=== PATIENT | female | born 1945 | race Caucasian/White ===

== ENCOUNTER 2019-04-14 10:56 | Emergency (ER) | payer MEDICARE ==
[~2019-04-14] VITALS: Ht 160 cm; Wt 64.9 kg
[2019-04-14] MEDS ORDERED: HYDROcodone/acetaminophen 10/325mg tab PO ONE (11:20)
[2019-04-14] MEDS ORDERED: HYDR-4383 PO (11:24)
--- NOTE | 2019-04-14 11:24 | NUR ---
Pt to xray.
[2019-04-14 11:55] VITALS: BP 119/59
[2019-04-14] MEDS ORDERED: normal saline 1000ml 1,000 ML IVB ONE (11:56)
== END 2019-04-14 13:00 | disposition home or self-care (01) ==
LOC: ER 10:57
DX: S30.0XXA Contusion of lower back and pelvis, initial encounter (principal); S20.229A Contusion of unspecified back wall of thorax, initial encounter; Z88.8 Allergy status to other drugs, medicaments and biological substances; Z79.899 Other long term (current) drug therapy; W01.0XXA Fall on same level from slipping, tripping and stumbling without subsequent striking against object, initial encounter; Y93.01 Activity, walking, marching and hiking; Y92.89 Other specified places as the place of occurrence of the external cause; Y99.8 Other external cause status
CPT/HCPCS: 72070; 72100; 99284; J7030

== ENCOUNTER 2019-06-04 21:03 | Inpatient (IN) | payer MEDICARE ==
[~2019-06-04] VITALS: Ht 160 cm; Wt 59.1 kg
[~2019-06-04 21:03] MED LIST: HYDR-4383 PO
[2019-06-04 22:13] LABS: BASOPHILS # (AUTO) 0.1 X10'3 (0-0.2); BASOPHILS % (AUTO) 1.5 % (0-1); EOSINOPHILS # (AUTO) 0.3 X10'3 (0-0.9); HEMATOCRIT 42.2 % (35.0-45.0); LYMPHOCYTES # (AUTO) 2.5 X10'3 (1.1-4.8); LYMPHOCYTES % (AUTO) 29.4 % (21-51); MEAN CORPUSCULAR HEMOGLOBIN 30.3 PG (27.0-31.0); MEAN CORPUSCULAR HGB CONC 33.1 g/dL (33.0-36.5); MEAN CORPUSCULAR VOLUME 91.6 FL (78-98); MONOCYTES # (AUTO) 0.5 X10'3 (0-0.9); MONOCYTES % (AUTO) 6.2 % (2-12); NEUTROPHILS # (AUTO) 5.1 X10'3 (1.8-7.7); NEUTROPHILS % (AUTO) 59.9 % (42-75); PLATELET COUNT 230 X10'3 (140-440); RED CELL DISTRIBUTION WIDTH 14.9 % (11.5-14.5); WHITE BLOOD COUNT 8.5 X10'3 (4.5-11.0)
[2019-06-04 22:25] LABS: ALANINE AMINOTRANSFERASE 11 U/L (12-78); ALBUMIN 3.7 G/DL (3.4-5.0); ALBUMIN/GLOBULIN RATIO 1.1 (1.1-1.5); ALKALINE PHOSPHATASE 82 IU/L (46-116); ANION GAP 8 (8-16); ASPARTATE AMINO TRANSFERASE 12 U/L (10-37); BILIRUBIN,TOTAL 0.3 MG/DL (0.1-1.0); BLOOD UREA NITROGEN 12 MG/DL (7-18); BUN/CREATININE RATIO 16.2 (6.6-38.0); CALCIUM 9.1 MG/DL (8.5-10.1); CHLORIDE 103 MMOL/L (99-107); CREATININE 0.74 MG/DL (0.40-0.90); GLUCOSE 112 MG/DL (70-104); POTASSIUM 4.6 MMOL/L (3.5-5.1); SODIUM 140 MMOL/L (135-145); TOTAL CARBON DIOXIDE 29.3 MMOL/L (24-32); TOTAL PROTEIN 7.2 G/DL (6.4-8.2); eGFR 77 ML/MIN
[2019-06-05] VITALS (16 sets, daily range): BP systolic 111–168; BP diastolic 37–75
[2019-06-05] MEDS ORDERED: meclizine 12.5mg tablet PO ONE (00:20)
[2019-06-05] MEDS ORDERED: ondansetron 4mg rapidly disintigrating tab PO ONE (00:20)
[2019-06-05] MEDS ORDERED: aspirin 81mg tab.chew PO ONE (00:20)
[2019-06-05] MEDS ORDERED: nitroGLYCERIN 0.4mg SUBLingual tab SL PRN ×2 (00:20→08:00)
[2019-06-05 00:46] LABS: LIPASE 104 U/L (73-393)
[2019-06-05] MEDS ORDERED: ASPI81TA52 PO (01:26)
[2019-06-05] MEDS ORDERED: CARV-49 PO (01:26)
[2019-06-05] MEDS ORDERED: CALC600T12 PO (01:26)
[2019-06-05] MEDS ORDERED: EFF25T PO (01:26)
[2019-06-05] MEDS ORDERED: BENA10TA74 PO (01:26)
[2019-06-05] MEDS ORDERED: CLOP75TA15 PO (01:26)
[2019-06-05] MEDS ORDERED: OMEP20TA5 PO (01:26)
[2019-06-05] MEDS ORDERED: FLUT1BLS4 INH (01:29)
--- NOTE | 2019-06-05 01:29 | NUR ---
ANAI, SON, AND MELI DUNHAM, LEAVING NOW HOME PHONE WITH ANY UPDATED [phone]. PLEASE CALL WHEN PT GETS A ROOM AND GOES UPSTAIRS.
--- NOTE | 2019-06-05 01:41 | NUR ---
MED REC COMPLETED, PT AWAITING HOSPITALIST
[2019-06-05] MEDS ORDERED: mag hydrox/Alum hydrox/simeth 30ml oral suspension PO PRN (02:10)
[2019-06-05] MEDS ORDERED: ondansetron/PF 4mg/2ml inj IV PRN (02:10)
[2019-06-05] MEDS ORDERED: acetaminophen 325mg tablet PO PRN (02:10)
[2019-06-05] MEDS ORDERED: magnesium hydroxide 30ml (MOM) UD suspension PO PRN (02:10)
[2019-06-05 02:32] LABS: HEMOGLOBIN A1C 5.6 % (4.5-6.2)
--- NOTE | 2019-06-05 02:47 | NUR ---
DR. KHAN ORDERS IN FOR ADMISSION. AWAITING IPA
--- NOTE | 2019-06-05 03:55 | NUR ---
Patient in room PCU 3023. I have received report from Barbara MULLER and had the opportunity to ask questions and assume patient care. Patient arrived to telemetry by too and was able to ambulate into her bed. VS taken, telemetry monitoring started. Patient was oriented to her room and the call light. All belongings are in a patient bag at her bedside. Will continue to monitor.
--- NOTE | 2019-06-05 06:15 | NUR ---
Patient in room PCU 3023. I have received report from Cathryn MULLER and had the opportunity to ask questions and assume patient care.
--- NOTE | 2019-06-05 06:29 | NUR ---
Problems reprioritized. Patient report given, questions answered & plan of care reviewed with Papito MULLER.
[2019-06-05] MEDS ORDERED: pantoprazole 40mg Tablet.DR PO SCH (07:30)
--- NOTE | 2019-06-05 07:34 | NUR ---
promotional table spacer PAGER ID: [phone] MESSAGE: Re: Bailee Galvez, Room: 3023C. Pt admitted for chest pain, Trops neg x3. Leydi scan not ordered, do you want Pt NPO just in case? -[facility] #[id number]
[2019-06-05] MEDS ORDERED: non-formulary drug (Omeprazole 1 TAB) PO SCH (08:00)
[2019-06-05] MEDS ORDERED: regadenoson 0.4mg/5ml syringe IV ONE (08:00)
[2019-06-05] MEDS ORDERED: heparin, porcine 5000 units/ml vial SQ SCH (08:00)
[2019-06-05] MEDS ORDERED: clopidogrel 75mg tablet PO SCH ×2 (08:00)
[2019-06-05] MEDS ORDERED: carvedilol 6.25mg tablet PO SCH ×2 (08:00)
[2019-06-05] MEDS ORDERED: aspirin 325mg tablet PO SCH (08:00)
[2019-06-05] MEDS ORDERED: budesonide 0.5mg/2ml UD nebule IH SCH (08:00)
[2019-06-05] MEDS ORDERED: aminophylline 250mg/10ml inj. IV PRN (08:00)
[2019-06-05] MEDS ORDERED: aspirin 81mg tablet.DR PO SCH (08:00)
[2019-06-05] MEDS ORDERED: metoprolol tartrate 1mg/ml inj IV PRN (08:00)
[2019-06-05] MEDS ORDERED: lisinopril 10 MG tablet PO SCH ×2 (08:00)
--- NOTE | 2019-06-05 13:24 | NUR ---
PAGER ID: [phone] MESSAGE: Re: Bailee Galvez, Room 3023C. Leydi scan results have been posted. -[facility] #[id number]
[2019-06-05] MEDS ORDERED: VENL75TA90 PO (13:49)
[2019-06-05] MEDS ORDERED: POTA10TA36 PO (13:49)
[2019-06-05] MEDS ORDERED: PRAV40TA3 PO (13:49)
--- NOTE | 2019-06-05 15:30 | NUR ---
Pt DC'd home with Osmani in law. IV removed, canula intact. Tele-box removed and returned to tele-tech. Pt stable at DC and vitals WNL. DC paperwork and instructions gone over with Pt and daughter in law. Allowed both Pt and daughter in law to ask questions and then answer them. Prescriptions called into [facility] in [facility]. Pt does not have a PCP and states she will get one PATRIC. Pt's belongings gathered and sent with Pt. Pt wheeled down to lobby in wheelchair by aid and left in private vehicle with daughter in law.
--- NOTE | 2019-06-09 11:11 | NUR ---
Case Management DC follow up: spoke to pt & pt DnL, pt reports "doing good, real good". Denies cp, emergent/acute general pain, SCHNEIDER, SOB, resp distress, NV, dizziness. pt states she does get a little light headed when stands up too fast. Sleeps w/elevation. Agrees to have something to steady herself when changing positions ( educated orthostatic protocol). verbalizes understanding of meds, why prescribed, taking as ordered, no ase noted. Lives w/daughter, who is an RN. PCP has been set up w/ROGER Bynum. Also seeking necessary referrals to sanitation inspector/[facility]. Verbalizes understanding of s/s that would warrant -/ER visit for evaluation. needs met, quesions answered at DC, no further questions at this time r/t aftercare, hospital stay.
== END 2019-06-05 15:30 | disposition home or self-care (01) | DRG 313 ==
LOC: ER 21:03 → ED HOLD 06-05 02:24 → PCU 3S 06-05 04:34
PROVIDERS: ADMIT Internal Medicine; ATTEND Internal Medicine
PROC: 4A02XM4 Measurement of Cardiac Total Activity, External Approach (ICD-10-PCS; principal; 2019-06-05)
PROC: 3E033HZ Introduction of Radioactive Substance into Peripheral Vein, Percutaneous Approach (ICD-10-PCS; 2019-06-05)
DX: R07.9 Chest pain, unspecified (principal); E78.00 Pure hypercholesterolemia, unspecified; I10 Essential (primary) hypertension; F17.210 Nicotine dependence, cigarettes, uncomplicated; J44.9 Chronic obstructive pulmonary disease, unspecified; I25.2 Old myocardial infarction; Z79.02 Long term (current) use of antithrombotics/antiplatelets; Z88.8 Allergy status to other drugs, medicaments and biological substances; Z98.61 Coronary angioplasty status
CPT/HCPCS: 36415; 71045; 78452; 80053; 83036; 83690; 83880; 84484; 85025; 87081; 93005; 93017; 94640; 94760; 99285; A9500; G0378; J0280; J1644; J2785; J7626; J8597

== ENCOUNTER 2019-10-01 06:13 | Day surgery (SDC) | payer OTHER ==
[2019-09-30 14:24] LABS: BASOPHILS # (AUTO) 0.1 X10'3 (0-0.2); BASOPHILS % (AUTO) 1.3 % (0-1); EOSINOPHILS # (AUTO) 0.2 X10'3 (0-0.9); EOSINOPHILS % (AUTO) 2.6 % (0-6); HEMATOCRIT 39.8 % (35.0-45.0); HEMOGLOBIN 12.9 g/dl (12.0-16.0); LYMPHOCYTES # (AUTO) 2.5 X10'3 (1.1-4.8); MEAN CORPUSCULAR HEMOGLOBIN 29.3 PG (27.0-31.0); MEAN CORPUSCULAR HGB CONC 32.4 g/dL (33.0-36.5); MEAN CORPUSCULAR VOLUME 90.6 FL (78-98); MEAN PLATELET VOLUME 9.4 FL (7.4-10.4); MONOCYTES # (AUTO) 0.8 X10'3 (0-0.9); MONOCYTES % (AUTO) 8.7 % (2-12); NEUTROPHILS # (AUTO) 5.9 X10'3 (1.8-7.7); NEUTROPHILS % (AUTO) 61.4 % (42-75); PLATELET COUNT 242 X10'3 (140-440); RED BLOOD COUNT 4.39 X10'6 (4.20-5.60); RED CELL DISTRIBUTION WIDTH 16.8 % (11.5-14.5); WHITE BLOOD COUNT 9.5 X10'3 (4.5-11.0)
[2019-09-30 14:36] LABS: PARTIAL THROMBOPLASTIN TIME 26 SECONDS (22-32)
[2019-09-30 14:37] LABS: ALBUMIN 3.5 G/DL (3.4-5.0); ANION GAP 3 (8-16); BLOOD UREA NITROGEN 11 MG/DL (7-18); BUN/CREATININE RATIO 12.9 (6.6-38.0); CALCIUM 9.2 MG/DL (8.5-10.1); CHLORIDE 104 MMOL/L (99-107); CREATININE 0.85 MG/DL (0.40-0.90); GLUCOSE 95 MG/DL (70-104); POTASSIUM 4.4 MMOL/L (3.5-5.1); SODIUM 140 MMOL/L (135-145); TOTAL CARBON DIOXIDE 32.6 MMOL/L (24-32); eGFR 66 ML/MIN
[2019-10-01] VITALS (11 sets, daily range): BP systolic 113–141; BP diastolic 46–89
[~2019-10-01] VITALS: Ht 160 cm; Wt 59.2 kg
[~2019-10-01 06:13] MED LIST changes: +ASPI81TA52 PO; +BENA10TA74 PO; +CALC600T12 PO; +CARV-49 PO; +CLOP75TA15 PO; +FLUT1BLS4 INH; -HYDR-4383 PO; +OMEP20TA5 PO; +POTA10TA36 PO; +PRAV40TA3 PO; +VENL75TA90 PO
[2019-10-01] MEDS ORDERED: normal saline 1,000 ML IV SCH (06:35)
[2019-10-01] MEDS ORDERED: diphenhydrAMINE 25mg capsule PO PRN (06:35)
[2019-10-01] MEDS ORDERED: LORazepam 0.5 MG tablet PO PRN (06:35)
[2019-10-01] MEDS ORDERED: LIDOcaine/PRILOcaine 5gm cream TP ONE (06:40)
[2019-10-01] MEDS ORDERED: ATOR80TA13 PO (06:50)
[2019-10-01] MEDS ORDERED: fentaNYL/PF 50MCG/1 ML 2ML syringe ONE (06:51)
[2019-10-01] MEDS ORDERED: LIDOcaine 1% (10mg/ml)w/preservative injection 20ml MDV ONE ×2 (06:51→06:52)
[2019-10-01] MEDS ORDERED: midazolam 2 mg/2 ml injection ONE (06:51)
[2019-10-01] MEDS ORDERED: nitroGLYCERIN-Tridil 50MG/D5W 250 ML IV ONE (06:51)
[2019-10-01] MEDS ORDERED: verapamil 2.5 mg/ml inj IV ONE (06:51)
[2019-10-01] MEDS ORDERED: iohexol 350 MG/ML 50ML vial IV ONE (06:52)
[2019-10-01] MEDS ORDERED: iohexol 350MG/ML 100ml bottle IV ONE ×2 (06:52→08:09)
[2019-10-01] MEDS ORDERED: heparin 1,000unit/ml 10ml vial 10 ML ONE (06:52)
[2019-10-01] MEDS ORDERED: CHOL50004 PO (06:56)
[2019-10-01] MEDS ORDERED: LYR75C PO (06:56)
[2019-10-01] MEDS ORDERED: LEVO25TA2 PO (06:56)
[2019-10-01] MEDS ORDERED: vitamin b12 PO (06:56)
[2019-10-01] MEDS ORDERED: OMEG-79 PO (06:56)
[2019-10-01] MEDS ORDERED: FLUT16SP2 BOTHNARES (06:56)
[2019-10-01 08:51] LABS: ISTAT HGB ART 10.5 g/dl (12.0-16.0); ISTAT Hct ART 31 %PCV (35-48); ISTAT O2 SATURATION ARTERIAL 96 % (95-98); ISTAT SOURCE ART
[2019-10-01] MEDS ORDERED: HYDROcodone/acetaminophen 5mg/325mg tablet PO PRN (09:00)
[2019-10-01] MEDS ORDERED: HYDROcodone/acetaminophen 10/325mg tab PO PRN (09:00)
[2019-10-01] MEDS ORDERED: acetaminophen 325mg tablet PO PRN (09:00)
== END 2019-10-01 15:00 | disposition home or self-care (01) ==
LOC: SSTAY O 06:13
PROVIDERS: ATTEND Internal Medicine Cardiovascular Disease
DX: R94.39 Abnormal result of other cardiovascular function study (principal); I25.10 Atherosclerotic heart disease of native coronary artery without angina pectoris; I25.2 Old myocardial infarction; I10 Essential (primary) hypertension; E78.5 Hyperlipidemia, unspecified; J44.9 Chronic obstructive pulmonary disease, unspecified; F41.9 Anxiety disorder, unspecified; E03.9 Hypothyroidism, unspecified; K21.9 Gastro-esophageal reflux disease without esophagitis; Z90.710 Acquired absence of both cervix and uterus; Z98.51 Tubal ligation status; Z95.5 Presence of coronary angioplasty implant and graft; Z90.49 Acquired absence of other specified parts of digestive tract; F17.210 Nicotine dependence, cigarettes, uncomplicated; Z88.8 Allergy status to other drugs, medicaments and biological substances; Z79.899 Other long term (current) drug therapy; Z79.82 Long term (current) use of aspirin; Z79.01 Long term (current) use of anticoagulants
CPT/HCPCS: 36415; 80048; 82803; 85014; 85025; 85610; 85730; 93005; 93460; 99152; 99153; C1769; J1644; J2001; J2250; J3010; J7030; Q0163; Q9967; A4620; A5120; A6258; J3490

== ENCOUNTER 2019-10-16 11:25 | Emergency (ER) | payer OTHER ==
[~2019-10-16] VITALS: Ht 160 cm; Wt 59.1 kg
[~2019-10-16 11:25] MED LIST changes: +ATOR80TA13 PO; -CALC600T12 PO; +CHOL50004 PO; +FLUT16SP2 BOTHNARES; -FLUT1BLS4 INH; +LEVO25TA2 PO; +LYR75C PO; +OMEG-79 PO; -POTA10TA36 PO; -PRAV40TA3 PO; +vitamin b12 PO
[2019-10-16 11:57] LABS: BASOPHILS # (AUTO) 0.1 X10'3 (0-0.2); BASOPHILS % (AUTO) 1.2 % (0-1); EOSINOPHILS # (AUTO) 0.3 X10'3 (0-0.9); EOSINOPHILS % (AUTO) 2.9 % (0-6); HEMOGLOBIN 12.8 g/dl (12.0-16.0); LYMPHOCYTES # (AUTO) 2.3 X10'3 (1.1-4.8); LYMPHOCYTES % (AUTO) 24.8 % (21-51); MEAN CORPUSCULAR HEMOGLOBIN 30.2 PG (27.0-31.0); MEAN CORPUSCULAR HGB CONC 32.8 g/dL (33.0-36.5); MEAN CORPUSCULAR VOLUME 92.2 FL (78-98); MEAN PLATELET VOLUME 9.8 FL (7.4-10.4); MONOCYTES % (AUTO) 10.8 % (2-12); NEUTROPHILS # (AUTO) 5.7 X10'3 (1.8-7.7); NEUTROPHILS % (AUTO) 60.3 % (42-75); PLATELET COUNT 264 X10'3 (140-440); RED BLOOD COUNT 4.24 X10'6 (4.20-5.60); WHITE BLOOD COUNT 9.4 X10'3 (4.5-11.0)
[2019-10-16 12:11] LABS: ALANINE AMINOTRANSFERASE 27 U/L (12-78); ALBUMIN 3.7 G/DL (3.4-5.0); ALKALINE PHOSPHATASE 99 IU/L (46-116); ANION GAP 2 (8-16); ASPARTATE AMINO TRANSFERASE 27 U/L (10-37); BILIRUBIN,TOTAL 0.4 MG/DL (0.1-1.0); BLOOD UREA NITROGEN 7 MG/DL (7-18); BUN/CREATININE RATIO 8.2 (6.6-38.0); CALCIUM 9.3 MG/DL (8.5-10.1); CHLORIDE 104 MMOL/L (99-107); CREATININE 0.85 MG/DL (0.40-0.90); GLUCOSE 86 MG/DL (70-104); POTASSIUM 3.4 MMOL/L (3.5-5.1); SODIUM 140 MMOL/L (135-145); TOTAL CARBON DIOXIDE 33.9 MMOL/L (24-32); TOTAL PROTEIN 7.3 G/DL (6.4-8.2); eGFR 66 ML/MIN
[2019-10-16] MEDS ORDERED: diphenhydrAMINE 50 mg/ml inj IV ONE (14:25)
[2019-10-16] MEDS ORDERED: proCHLORperazine 10 MG/2 ml inj IV ONE (14:25)
[2019-10-16] MEDS ORDERED: iohexol 350MG/ML 100ml bottle IV ONE (14:37)
[2019-10-16] MEDS ORDERED: dexamethasone sod phosphate 10mg/ml inj IV STA (16:50)
[2019-10-16] MEDS ORDERED: PROC-8 PO (17:00)
[2019-10-16] MEDS ORDERED: DIPH25CA83 PO (17:00)
[2019-10-16] MEDS ORDERED: proCHLORperazine 10 MG/2 ml inj IV PRN (17:05)
[2019-10-16 17:35] VITALS: BP 193/99
== END 2019-10-16 17:37 | disposition home or self-care (01) ==
LOC: ER 11:26
DX: G43.909 Migraine, unspecified, not intractable, without status migrainosus (principal); I63.81 Other cerebral infarction due to occlusion or stenosis of small artery; R11.2 Nausea with vomiting, unspecified; R42 Dizziness and giddiness; E78.00 Pure hypercholesterolemia, unspecified; I10 Essential (primary) hypertension; J44.9 Chronic obstructive pulmonary disease, unspecified; F17.200 Nicotine dependence, unspecified, uncomplicated; Z98.890 Other specified postprocedural states; Z86.73 Personal history of transient ischemic attack (TIA), and cerebral infarction without residual deficits; Z88.8 Allergy status to other drugs, medicaments and biological substances; Z79.82 Long term (current) use of aspirin; Z79.899 Other long term (current) drug therapy
CPT/HCPCS: 36415; 70496; 71045; 80053; 84484; 85025; 85610; 93005; 96374; 96375; 96376; 99285; J0780; J1100; J1200; Q9967

== ENCOUNTER 2020-12-18 10:34 | Emergency (ER) | payer OTHER ==
[~2020-12-18] VITALS: Ht 160 cm; Wt 58.7 kg
[~2020-12-18 10:34] MED LIST changes: +DIPH25CA83 PO; +PROC-8 PO
[2020-12-18 11:11] LABS: CLARITY,URINE CLOUDY (Clear); COLOR,URINE YELLOW (Yellow); GLUCOSE, URINE NEGATIVE (Neg); KETONES,URINE NEGATIVE (Neg); LEUKOCYTE ESTERASE ,URINE SMALL (Neg); NITRITES, URINE NEGATIVE (Neg); OCCULT BLOOD,URINE TRACE-INTACT (Neg); PH,URINE 5.5 (4.8-8.0); PROTEIN,URINE NEGATIVE (Neg)
[2020-12-18 11:15] LABS: UA COLLECTION TYPE CLN CATCH MIDSTREAM
[2020-12-18 11:17] LABS: BACTERIA,URINE 1+ /HPF (Neg); MUCUS STRANDS NONE SEEN /LPF (Neg); RBC,URINE 0-2 /HPF (0-2); SQUAMOUS EPITHELIAL CELL,UR FEW /LPF (FEW); WBC,URINE 30-50 /HPF (0-4)
[2020-12-18] MEDS ORDERED: normal saline 1000ML IV soln IVB ONE (13:00)
[2020-12-18] MEDS ORDERED: morphine 2 MG/ML inj. syringe IV ONE (13:00)
[2020-12-18] MEDS ORDERED: ondansetron/PF 4mg/2ml inj IV ONE (13:00)
[2020-12-18 13:37] LABS: BASOPHILS # (AUTO) 0.1 X10'3 (0-0.2); BASOPHILS % (AUTO) 0.8 % (0-1); EOSINOPHILS # (AUTO) 0.2 X10'3 (0-0.9); EOSINOPHILS % (AUTO) 1.9 % (0-6); HEMATOCRIT 39.4 % (35.0-45.0); HEMOGLOBIN 12.7 g/dl (12.0-16.0); LYMPHOCYTES # (AUTO) 2.3 X10'3 (1.1-4.8); LYMPHOCYTES % (AUTO) 20.7 % (21-51); MEAN CORPUSCULAR HEMOGLOBIN 27.5 PG (27.0-31.0); MEAN CORPUSCULAR HGB CONC 32.3 g/dL (33.0-36.5); MEAN CORPUSCULAR VOLUME 85.1 FL (78-98); MEAN PLATELET VOLUME 9.8 FL (7.4-10.4); MONOCYTES # (AUTO) 1.1 X10'3 (0-0.9); MONOCYTES % (AUTO) 10.3 % (2-12); NEUTROPHILS # (AUTO) 7.3 X10'3 (1.8-7.7); NEUTROPHILS % (AUTO) 66.3 % (42-75); PLATELET COUNT 246 X10'3 (140-440); RED BLOOD COUNT 4.63 X10'6 (4.20-5.60); RED CELL DISTRIBUTION WIDTH 17.1 % (11.5-14.5)
[2020-12-18 13:44] LABS: PARTIAL THROMBOPLASTIN TIME 26 SECONDS (22-32)
[2020-12-18 13:53] LABS: ALANINE AMINOTRANSFERASE 19 U/L (12-78); ALBUMIN 3.5 G/DL (3.4-5.0); ALBUMIN/GLOBULIN RATIO 0.9 (1.1-1.5); ALKALINE PHOSPHATASE 106 IU/L (46-116); ANION GAP 6 (8-16); ASPARTATE AMINO TRANSFERASE 22 U/L (10-37); BILIRUBIN,TOTAL 0.3 MG/DL (0.1-1.0); BLOOD UREA NITROGEN 5 MG/DL (7-18); BUN/CREATININE RATIO 6.9 (6.6-38.0); CALCIUM 8.6 MG/DL (8.5-10.1); CHLORIDE 101 MMOL/L (99-107); CREATININE 0.72 MG/DL (0.40-0.90); GLUCOSE 100 MG/DL (70-104); POTASSIUM 3.9 MMOL/L (3.5-5.1); SODIUM 136 MMOL/L (135-145); TOTAL CARBON DIOXIDE 29.3 MMOL/L (24-32); TOTAL PROTEIN 7.3 G/DL (6.4-8.2); eGFR 79 ML/MIN
[2020-12-18] MEDS ORDERED: ciprofloxacin 250mg tablet PO ONE (15:35)
[2020-12-18] MEDS ORDERED: CIPR-259 PO (15:38)
[2020-12-18 16:06] VITALS: BP 122/104
== END 2020-12-18 16:39 | disposition home or self-care (01) ==
LOC: ER 10:35
DX: R61 Generalized hyperhidrosis (principal); N12 Tubulo-interstitial nephritis, not specified as acute or chronic; R10.84 Generalized abdominal pain; R11.2 Nausea with vomiting, unspecified; R30.9 Painful micturition, unspecified; G43.909 Migraine, unspecified, not intractable, without status migrainosus; E78.00 Pure hypercholesterolemia, unspecified; I10 Essential (primary) hypertension; J44.9 Chronic obstructive pulmonary disease, unspecified; Z86.73 Personal history of transient ischemic attack (TIA), and cerebral infarction without residual deficits; Z98.890 Other specified postprocedural states; Z88.8 Allergy status to other drugs, medicaments and biological substances; Z79.82 Long term (current) use of aspirin; Z79.2 Long term (current) use of antibiotics; Z79.899 Other long term (current) drug therapy
CPT/HCPCS: 36415; 74176; 80053; 81001; 85025; 85610; 85730; 87088; 96361; 96374; 96375; 99284; J2270; J2405; J7030

== ENCOUNTER 2020-12-27 20:28 | Emergency (ER) | payer OTHER ==
[~2020-12-27] VITALS: Ht 160 cm; Wt 80.0 kg
[2020-12-27] MEDS ORDERED: sucralfate 1gm/10ml UD suspension PO STA (20:41)
[2020-12-27] MEDS ORDERED: LORazepam 2 mg/ml vial IV ONE (20:45)
[2020-12-27] MEDS ORDERED: mag hydrox/Alum hydrox/simeth 30ml oral suspension PO ONE (20:45)
[2020-12-27] MEDS ORDERED: morphine 4 MG/ML inj SYRINge IV ONE (20:45)
[2020-12-27] MEDS ORDERED: LIDOcaine Viscous 15ml cup MM ONE (20:45)
[2020-12-27 21:37] LABS: BASOPHILS # (AUTO) 0.1 X10'3 (0-0.2); BASOPHILS % (AUTO) 1.1 % (0-1); EOSINOPHILS # (AUTO) 0.4 X10'3 (0-0.9); EOSINOPHILS % (AUTO) 4.4 % (0-6); HEMATOCRIT 34.6 % (35.0-45.0); HEMOGLOBIN 11.1 g/dl (12.0-16.0); LYMPHOCYTES # (AUTO) 2.5 X10'3 (1.1-4.8); LYMPHOCYTES % (AUTO) 28.3 % (21-51); MEAN CORPUSCULAR HEMOGLOBIN 27.8 PG (27.0-31.0); MEAN CORPUSCULAR HGB CONC 32.1 g/dL (33.0-36.5); MEAN CORPUSCULAR VOLUME 86.8 FL (78-98); MEAN PLATELET VOLUME 10.2 FL (7.4-10.4); MONOCYTES # (AUTO) 1.2 X10'3 (0-0.9); MONOCYTES % (AUTO) 13.7 % (2-12); NEUTROPHILS # (AUTO) 4.7 X10'3 (1.8-7.7); NEUTROPHILS % (AUTO) 52.5 % (42-75); PLATELET COUNT 232 X10'3 (140-440); RED BLOOD COUNT 3.99 X10'6 (4.20-5.60); RED CELL DISTRIBUTION WIDTH 17.4 % (11.5-14.5)
[2020-12-27 21:50] LABS: ALANINE AMINOTRANSFERASE 17 U/L (12-78); ALBUMIN 2.6 G/DL (3.4-5.0); ALBUMIN/GLOBULIN RATIO 0.8 (1.1-1.5); ANION GAP 5 (8-16); ASPARTATE AMINO TRANSFERASE 23 U/L (10-37); BILIRUBIN,TOTAL 0.2 MG/DL (0.1-1.0); BLOOD UREA NITROGEN 9 MG/DL (7-18); BUN/CREATININE RATIO 11.4 (6.6-38.0); CALCIUM 7.2 MG/DL (8.5-10.1); CHLORIDE 107 MMOL/L (99-107); CREATININE 0.79 MG/DL (0.40-0.90); GLUCOSE 80 MG/DL (70-104); POTASSIUM 3.8 MMOL/L (3.5-5.1); SODIUM 140 MMOL/L (135-145); TOTAL CARBON DIOXIDE 27.7 MMOL/L (24-32); TOTAL PROTEIN 5.7 G/DL (6.4-8.2); eGFR 71 ML/MIN
[2020-12-27 21:51] LABS: ALKALINE PHOSPHATASE 81 IU/L (46-116)
[2020-12-27] MEDS ORDERED: metoprolol tartrate 1mg/ml inj IV ONE (22:00)
[2020-12-27 23:15] VITALS: BP_DIAS 82
[2020-12-28 00:17] VITALS: BP_SYST 166
--- NOTE | 2020-12-28 00:31 | NUR ---
stable vs. pt provided hospital pay taxi ride home. pt is fall risk and taken to lobby in [place].
== END 2020-12-28 00:35 | disposition home or self-care (01) ==
LOC: ER 20:28
DX: R07.89 Other chest pain (principal); R06.02 Shortness of breath; R11.0 Nausea; I25.2 Old myocardial infarction; J44.9 Chronic obstructive pulmonary disease, unspecified; G43.909 Migraine, unspecified, not intractable, without status migrainosus; E78.00 Pure hypercholesterolemia, unspecified; I10 Essential (primary) hypertension; Z86.73 Personal history of transient ischemic attack (TIA), and cerebral infarction without residual deficits; Z95.5 Presence of coronary angioplasty implant and graft; Z79.2 Long term (current) use of antibiotics; Z79.899 Other long term (current) drug therapy; Z79.82 Long term (current) use of aspirin; Z88.8 Allergy status to other drugs, medicaments and biological substances
CPT/HCPCS: 36415; 71045; 80053; 83880; 84484; 85025; 93005; 96374; 96375; 99285; J2060; J2270; J3490